=== PATIENT | female | born 1935 | race Caucasian/White ===

== ENCOUNTER 2017-03-17 10:04 | Emergency (ER) | payer MEDICARE, BC ==
[2017-03-17] MEDS ORDERED: SODIUM CHLORIDE 0.9% 500 ML IV ONE (10:10)
[2017-03-17] MEDS ORDERED: ACETAMINOPHEN 1,000 MG/100 ML BTL IVPB ONE (10:12)
--- NOTE | 2017-03-17 10:16 | Emergency Department Record ---
History of Present Illness - General Stated Complaint: ABD PAIN Time Seen by Provider: 03/17/17 10:05 Source: Patient, Family Mode of Arrival: Ambulatory Limitations: No limitations - History of Present Illness Initial Comments: 81 yo female presents with lower abdominal pain for 3-4 days that is slowly worsening. The pain is across the lower abdomen. She initially noted the pain with urination abut now it is fairly constant. No fevers. No nausea, vomiting or diarrhea. The area in the lower abdomen is tender to touch. No rash. Her appetite has remained normal. No blood in the urine or stools. 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 MD Complaint: Abdominal pain -: Days(s) (4) Location: LLQ, RLQ Radiation: LLQ, RLQ Migration to: LLQ, RLQ Severity: Moderate Quality: Aching Consistency: Constant Improves With: Other (Uination) Worsens With: Movement Associated Symptoms: Dysuria - Related Data Patient : No Hx Age of Menopause: 57 Home Medications Medication Instructions Recorded Confirmed Last Taken Calc/D3/Mag/Zn/[place] 1 each PO BID 03/17/17 03/17/17 1 Day Ago [Calcium 600 mg Plus Vit D Tab] ~03/16/17 Cholecalciferol (Vitamin D3) 5,000 unit PO DAILY 03/17/17 03/17/17 1 Day Ago [Vitamin D3] ~03/16/17 [place]-3 Fatty Acids/Fish Oil [Fish 1 each PO DAILY 03/17/17 03/17/17 1 Day Ago Oil 1,000 mg Capsule] ~03/16/17 Vit C/Vit E AC/Lut/Copper/Zinc 2 tab PO DAILY 03/17/17 03/17/17 1 Day Ago [PreserVision Lutein Softgel] ~03/16/17 Previous Rx's Medication Instructions Recorded Ciprofloxacin HCl [Cipro] 500 mg PO Q12HR #14 tablet 03/17/17 Metronidazole [Flagyl] 500 mg PO BID #14 tablet 03/17/17 Allergies Allergy/AdvReac Type Severity Reaction Status Date / Time Sulfa (Sulfonamide Allergy Intermediate PT UNSURE Verified 03/17/17 10:20 Antibiotics) OF REACTION [SULFA(SULFONAMIDE ANTIBIOTICS)] Review of Systems Constitutional: Denies: Chills, Fever, Malaise, Weakness Eyes: Denies: Eye discharge, Eye pain, Photophobia ENT: Denies: Congestion, Throat pain Respiratory: Denies: Cough, Dyspnea Cardiovascular: Denies: Chest pain, Palpitations, Syncope Endocrine: Denies: Fatigue, Polydipsia, Polyuria Gastrointestinal: Reports: As per HPI, Abdominal pain. Denies: Constipation, Diarrhea, Hematemesis, Hematochezia, Nausea, Vomiting Genitourinary: Reports: Dysuria, Frequency. Denies: Hematuria, Incontinence Musculoskeletal: Denies: Arthralgia, Back pain, Joint swelling, Myalgia, Neck pain Skin: Denies: Bruising, Change in color, Rash Neurological: Denies: Headache, Numbness, Weakness Psychiatric: Denies: Anxiety Hematological/Lymphatic: Denies: Blood Clots, Easy bleeding, Easy bruising, Swollen glands Past Medical History - SOCIAL HISTORY Smoking Status: Never smoker - RESPIRATORY Hx Respiratory Disorders: No - CARDIOVASCULAR Hx Cardio Disorders: No - NEURO Hx Neuro Disorders: Yes Hx Dizziness: Yes Hx Headaches: Yes - GI Hx GI Disorders: Yes Hx Reflux: Yes Hx Hiatal Hernia: Yes Hx Nausea/Vomiting: Yes Comment:: hx of Berg's esophagus - Hx Genitourinary Disorders: No - ENDOCRINE Hx Endocrine Disorders: No - MUSCULOSKELETAL Hx Musculoskeletal Disorders: No - PSYCH Hx Psych Problems: No - HEMATOLOGY/ONCOLOGY Hx Hematology/Oncology Disorders: No Physical Exam - General General Appearance: Alert, Oriented x3, Cooperative, No acute distress Limitations: No limitations - Head Head exam: Normal inspection - Eye Eye exam: Normal appearance. negative: Conjunctival injection, Periorbital swelling, Scleral icterus - ENT ENT exam: Normal exam. negative: Mucous membranes moist Ear exam: negative: Normal external inspection Nasal Exam: negative: Normal inspection Mouth exam: negative: Normal external inspection Teeth exam: Normal inspection - Neck Neck exam: Normal inspection, Full ROM. negative: Tenderness - Respiratory Respiratory exam: Normal lung sounds bilaterally. negative: Decreased breath sounds, Respiratory distress, Rhonchi, Stridor, Wheezes - Cardiovascular Cardiovascular Exam: Regular rate, Normal rhythm, Normal heart sounds Peripheral Pulses: 2+: Radial (R), Radial (L) - GI/Abdominal GI/Abdominal exam: Soft, Normal bowel sounds, Tenderness (tenderness noted across the lower abdomen but soft). negative: Distended, Hernia, Rebound - Rectal Rectal exam: Deferred - exam: Deferred - Extremities Extremities exam: Normal inspection, Full ROM, Normal capillary refill. negative: Tenderness - Back Back exam: Reports: Normal inspection, Full ROM. Denies: CVA tenderness (R), CVA tenderness (L), Muscle spasm, Rash noted, Tenderness - Neurological Neurological exam: Alert, Normal gait, Oriented X3 - Psychiatric Psychiatric exam: Normal affect, Normal mood - Skin Skin exam: Dry, Intact, Normal color, Warm Course - Reevaluation(s) Reevaluation #1: UA is positive for Nitrites and +4 bacteria She will be provided antibiotics. 03/17/17 11:16 No acute changes on the labs (CBC or CMP) 03/17/17 12:17 Reevaluation #2: The CT was read as possible short segment of acute diverticulitis The patient is well appearing, tolerating PO, no fever, normal labs. She will be sent home on PO antibiotics for UTI and Diverticulitis She was given the instructions for home care and reasons for immediate return to the ED 03/17/17 12:52 Medical Decision Making - Lab Data Result diagrams: 03/17/17 10:44 03/17/17 10:44 Disposition Disposition: Discharge Clinical Impression: Abdominal pain Qualifiers: Abdominal location: lower abdomen, unspecified Qualified Code(s): R10.30 - Lower abdominal pain, unspecified Urinary tract infection Qualifiers: Urinary tract infection type: site unspecified Hematuria presence: without hematuria Qualified Code(s): N39.0 - Urinary tract infection, site not specified Diverticulitis Qualifiers: Diverticulitis site: large intestine Diverticulitis bleeding: without bleeding Diverticulitis complication: unspecified complication status Qualified Code(s): K57.32 - Diverticulitis of large intestine without perforation or abscess without bleeding Disposition: Home, Self-Care Condition: (1) Good Instructions: Urinary Tract Infection in Women (ED), Abdominal Pain (ED), Diverticulitis (ED) Additional Instructions: Call your doctor for a recheck this week for the urinary tract infection and diverticulitis Return if worse, fever, vomiting, increasing pain or any new concerns Take the antibiotics until gone Prescriptions: Ciprofloxacin HCl [Cipro] 500 mg PO Q12HR #14 tablet Metronidazole [Flagyl] 500 mg PO BID #14 tablet Time of Disposition: 12:55 Quality - Quality Measures Quality Measures: N/A - Blood Pressure Screening Does Patient Have Any of the Following: No Blood Pressure Classification: Pre-Hypertensive BP Reading Systolic Measurement: 129 Diastolic Measurement: 83 Screening for High Blood Pressure: < Pre-Hypertensive BP, F/U Documented > [ [id number]] Pre-Hypertensive Follow-up Interventions: Referral to alternative/primary care provider.
[2017-03-17 10:51] LABS: BASO % 0.5 % (0-6); GRAN % 76.5 % (47-80); HEMATOCRIT 42.9 % (35.0-47.0); LYMPH % 12.8 % (16-45); MEAN CELL VOLUME 90.9 fl (81-97); MEAN CORPUSCULAR HEMOGLOBIN 29.7 pg (27-33); MEAN CORPUSCULAR HGB CONC 32.6 g/dl (32-36); MEAN PLATELET VOLUME 10.8 fl (7.4-10.4); MONO % 7.2 % (0-9); PLATELET COUNT 213 K/uL (130-400); RED BLOOD COUNT 4.72 M/uL (3.80-5.40); RED CELL DISTRIBUTION WIDTH 13.7 % (11.5-14.5); WHITE BLOOD COUNT W/O DIFF 10.7 K/uL (4.2-12.2)
[2017-03-17 11:02] LABS: URINE APPEARANCE CLEAR; URINE BILIRUBIN NEGATIVE (NEGATIVE); URINE BLOOD NEGATIVE (NEGATIVE); URINE COLOR YELLOW; URINE GLUCOSE (UA) NEGATIVE (NEGATIVE); URINE KETONE NEGATIVE (NEGATIVE); URINE LEUKOCYTE ESTERASE NEGATIVE (NEGATIVE); URINE NITRITE POSITIVE (NEGATIVE); URINE PROTEIN NEGATIVE (NEGATIVE); URINE UROBILINOGEN 0.2 E.U./dL (0.20 - 1.00)
[2017-03-17 11:11] LABS: ALB/GLOB RATIO 1.3 (1.1-1.8); ALKALINE PHOSPHATASE 79 U/L (35-104); ALT/SGPT 16 U/L (<33); AST/SGOT 20 U/L (10.0-35.0); CREATININE 0.7 mg/dL (0.5-0.9); EST GLOMERULAR FILTRATION RATE > 60 mL/min; GLUCOSE,RANDOM 98 mg/dL (74-109); LIPASE 47 U/L (13-60); TOTAL PROTEIN 7.1 g/dL (6.6-8.7)
[2017-03-17 11:12] LABS: URINE BACTERIA 4+; URINE EPITHELIAL CELLS 0 - 2 (FEW); URINE RBC 0 - 2 (NONE SEEN); URINE WBC 0 - 2 (0-2/hpf)
[2017-03-17] MEDS ORDERED: CEFTRIAXONE SODIUM 1 GM in 0.9 % SODIUM CHLORIDE 100ML 100 ML IVPB ONE (11:16)
[2017-03-17 19:43] LABS: BLOOD UREA NITROGEN 32.4 mg/dL (8-23)
--- NOTE | 2017-03-18 07:46 | CT SCAN REPORT ---
DATE: 03/17/2017 at 1211. EXAM: CT OF THE ABDOMEN AND PELVIS WITH CONTRAST. HISTORY: Lower abdominal pain for three days. TECHNIQUE: Following oral and intravenous contrast administration, helical CT examination of the abdomen and pelvis was performed including delayed images through the kidneys with 100 mL of Omnipaque 300 utilized. COMPARISON: CT of the abdomen and pelvis with contrast dated 08/10/2009. FINDINGS: There is again noted a moderate-sized hiatal hernia. Minor dependent atelectasis is suggested in each lung base. The visualized lung bases are otherwise clear, and there is no pleural or pericardial effusion. The heart is not enlarged. No new focal abnormality is demonstrated within the liver, spleen, pancreas, adrenal glands, nor right kidney. There is a questionable [id number]-[id number]-characterize hypodense lesion in the upper pole of the left kidney not previously demonstrated. This is nonspecific, though probably a cyst. The left kidney is otherwise normal in appearance. The gallbladder is surgically absent. The central biliary tree is normal for a patient of this age and for the postcholecystectomy state. No new intra-abdominal nor retroperitoneal lymphadenopathy is demonstrated. There is mild, diffuse atherosclerosis without aneurysmal dilatation of the abdominal aorta nor iliac arteries. The uterus is surgically absent. No intrinsic urinary bladder abnormality is seen. Mild fat density prominence is noted in each inguinal canal consistent with lipomas or, more likely, fat within small inguinal hernia sacs. These are stable. There is diffuse diverticulosis of the left colon redemonstrated, most pronounced in the sigmoid region where it is severe. There does appear to be segmental wall thickening of the mid to distal sigmoid colon with fat stranding. Acute diverticulitis is the most likely etiology. Underlying neoplasm would be difficult to exclude. There is minor fluid in the dependent pelvis, likely reactive. No evidence of abscess nor extraluminal air. The bowel is otherwise unremarkable. No new lytic or blastic bone lesion. There are degenerative changes scattered within the visualized spine. IMPRESSION: 1. DIFFUSE COLONIC DIVERTICULOSIS MOST PRONOUNCED IN THE SIGMOID REGION WHERE IT IS SEVERE. THERE IS A SHORT SEGMENT OF WALL THICKENING OF THE MID TO DISTAL SIGMOID COLON WITH MILD ADJACENT FAT STRANDING SUSPICIOUS FOR DIVERTICULITIS/ COLITIS. UNDERLYING NEOPLASM WOULD BE DIFFICULT TO ENTIRELY EXCLUDE. TRACE FREE FLUID IN THE DEPENDENT PELVIS IS LIKELY REACTIVE. NO ABSCESS NOR EXTRALUMINAL AIR. 2. STATUS POST CHOLECYSTECTOMY. 3. STABLE MODERATE-SIZED HIATAL HERNIA. 4. FAT DENSITY PROMINENCE AGAIN NOTED IN EACH INGUINAL CANAL CONSISTENT WITH SMALL INGUINAL HERNIAS. 5. SINGLE RWC-NLWLZ-GB-CHARACTERIZE HYPODENSE LESION IN THE UPPER POLE OF THE LEFT KIDNEY IS NONSPECIFIC BUT LIKELY A CYST. JOB NUMBER: [id number] [facility]
== END 2017-03-17 13:22 | disposition home or self-care (01) ==
LOC: ER 10:04
DX: K57.32 Diverticulitis of large intestine without perforation or abscess without bleeding (principal); R10.30 Lower abdominal pain, unspecified; N39.0 Urinary tract infection, site not specified; R30.0 Dysuria
CPT/HCPCS: 99284 ×2; 96365; 96375; 83690; 85025; 80053; 81001; 74177; Q9967

== ENCOUNTER 2017-07-23 07:38 | Day surgery (SDC) | payer MEDICARE, BC ==
[2017-07-23] MEDS ORDERED: FENTANYL PF 100MCG/2ML VIAL IV ONE (07:39)
[2017-07-23] MEDS ORDERED: LIDOCAINE 2% MDV (20MG/ML) 20ML VIAL IV ONE (07:39)
[2017-07-23] MEDS ORDERED: PROPOFOL 10 MG/ML VIAL IV ONE (07:39)
--- NOTE | 2017-07-23 13:30 | Operative Note ---
DATE OF SURGERY: 07/23/2017 REFERRING PROVIDER: Pascual Robbins MD PREOPERATIVE DIAGNOSIS: Abdominal pain, Berg's, and diverticulitis. POSTOPERATIVE DIAGNOSES: 1. Hiatal hernia. 2. 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 3. Severe colonic diverticulosis, left side greater than right. OPERATION: 1. ESOPHAGOGASTRODUODENOSCOPY with biopsy. 2. COLONOSCOPY. Preparation Quality: Fair to good. Estimated Blood Loss: Minimal. Samples Obtained: Include gastric antrum. PROCEDURE: After informed consent was obtained, the patient was placed in the left lateral decubitus position in the endoscopy suite, sedated and monitored by the Department of Anesthesia. Once sedated, a well-lubricated [id number] gastroscope was placed in the posterior oropharynx and under direct visualization passed to the proximal esophagus. The endoscope was advanced to the proximal, mid and distal esophagus. There was a small to moderate-size hiatal hernia. The squamocolumnar border appeared unremarkable. The gastric antrum demonstrated white plaques and nodular changes suggestive of gastric intestinal metaplasia. The pylorus, duodenal bulb and sweep were unremarkable. J-turn views of the proximal stomach revealed a hiatal hernia. The white plaques and nodules in the antrum were biopsied. No excessive bleeding was noted. The endoscope was then retracted through the proximal stomach and esophagus with no new findings noted. Digital rectal exam was unremarkable. A well-lubricated PCF-180 colonoscope was inserted into the rectum and advanced to the cecum. Advancement of the colonoscopy was extremely difficult due to looping, redundancy, and severe diverticular changes. Transabdominal pressure was required. Stiffening of the colonoscope was also required. The preparation quality was fair to good. The cecum, ileocecal valve and appendiceal orifice, ascending colon, transverse colon, descending colon, sigmoid colon, and rectum were otherwise unremarkable other than the aforementioned colonic diverticular changes, which were noted primarily in the left colon more so than the right, but nonetheless were severe in the left and moderate to severe on the right. J-turn views of the anorectum were unremarkable. The endoscope was straightened, the rectal ampulla deflated and the endoscope was removed. RECOMMENDATIONS: The patient should resume her medications and diet. Based on her age and findings, I do not recommend a repeat exam at this time. As always, thank you for allowing me to participate in the health care of your patients. CC: Pascual Robbins MD MTDD
== END 2017-07-23 09:51 | disposition home or self-care (01) ==
LOC: HOP 07:38
PROVIDERS: ATTEND Internal Medicine Gastroenterology
DX: R10.9 Unspecified abdominal pain (principal); K22.70 Barrett's esophagus without dysplasia; K57.30 Diverticulosis of large intestine without perforation or abscess without bleeding; K44.9 Diaphragmatic hernia without obstruction or gangrene; E78.00 Pure hypercholesterolemia, unspecified; K21.9 Gastro-esophageal reflux disease without esophagitis
CPT/HCPCS: 00813; 43235; G0105; 88341

== ENCOUNTER 2018-09-30 12:09 | Day surgery (SDC) | payer MEDICARE, BC ==
[2018-09-30] MEDS ORDERED: LIDOCAINE 2% MDV (20MG/ML) 20ML VIAL IV ONE (12:10)
[2018-09-30] MEDS ORDERED: PROPOFOL 10 MG/ML VIAL IV ONE (12:10)
--- NOTE | 2018-10-01 08:10 | Operative Note ---
DATE OF SURGERY: 09/30/2018 OPERATION: ESOPHAGOGASTRODUODENOSCOPY with biopsy. 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 POSTOPERATIVE DIAGNOSES: 1. Hiatal hernia. 2. Suspected gastric atrophy. 3. Antral white plaque suspicious for gastrointestinal metaplasia. 4. No mass lesions seen. PROCEDURE: After informed consent was obtained from the patient, she was placed in the left lateral decubitus position in the endoscopy suite, sedated and monitored by the department of anesthesia. Once sedated, a well-lubricated [id number] gastroscope was placed in the posterior oropharynx under direct visualization and passed to the proximal esophagus. The endoscope was advanced through the proximal, mid, and distal esophagus. The GE junction was unremarkable. However, there was a small- to moderate-size hiatal hernia. There were also changes consistent with gastric atrophy primarily in the gastric body. In the antrum, there were noted to be scattered white plaques of the prepyloric region highly suspicious for gastric intestinal metaplasia. I could appreciate no nodularity or masses in the region. The pylorus, duodenal bulb and sweep were unremarkable. J-turn views of the proximal stomach revealed a scant amount of retained debris as well as a hiatal hernia. The endoscope was straightened. Biopsies were obtained from the white plaque areas of the antrum. The stomach was deflated. The endoscope removed from the patient with no new findings noted. RECOMMENDATIONS: The patient should resume her medications and diet. Unless there is any unusual or concerning histologic finding, given the patient's age, I would not recommend repeat surveillance upper endoscopy. As always, thank you for allowing me to participate in the healthcare of your patients. CC: MD MICHELL Cornejo
== END 2018-09-30 13:45 | disposition home or self-care (01) ==
LOC: HOP 12:09
PROVIDERS: ATTEND Internal Medicine Gastroenterology
DX: Z87.19 Personal history of other diseases of the digestive system (principal); K44.9 Diaphragmatic hernia without obstruction or gangrene; K31.9 Disease of stomach and duodenum, unspecified; K29.50 Unspecified chronic gastritis without bleeding; E78.00 Pure hypercholesterolemia, unspecified; M81.0 Age-related osteoporosis without current pathological fracture